=== PATIENT | female | born 1995 | race Caucasian/White ===

== ENCOUNTER 2017-03-06 19:40 | Emergency (ER) | payer MEDICAID, OTHER ==
[2017-03-06] MEDS ORDERED: MORPHINE SULFATE 4 MG INJ IV ONE (19:57)
[2017-03-06] MEDS ORDERED: Phenergan 25 MG INJ IV ONE (19:57)
[2017-03-06] MEDS ORDERED: CLINDAMYCIN-D5W 900 MG/50 ML*** 50 ML IV ONE ×2 (19:58→20:26)
[2017-03-06] MEDS ORDERED: Sodium Chloride 0.9% 1000 ML 1,000 ML IV SCH (20:00)
--- NOTE | 2017-03-06 20:04 | ERPHSYRPT ---
- History of Present Illness Time Seen by Provider: 03/06/17 19:50 Source: patient Exam Limitations: no limitations Patient Subjective Stated Complaint: Pt sts stepped on a nail left foot yesterday. Last tetanus less than 3 years ago. Triage Nursing Assessment: Pt alert, oriented x 4, skin p/w/d, resps non- labored. Pt ambulatory to tx room, steady gait noted. No active bleeding noted , struck nail with heel. Red streaking noted to lateral side of foot. Physician History: YESTERDAY IN HER YARD PT STEPPED ON A SLIME NAIL WITH HER LEFT FOOT WITH RESULTANT LEFT FOOT/ANKLE PAIN, TODAY WITH SWELLING AND REDNESS OF THE LEFT FOOT. PT ALSO C/O NAUSEA, DIAPHORESIS AND CHILLS TODAY; DENIES CHEST PAIN, SHORTNESS OF AIR, FEVER. LAST TETANUS WAS ABOUT 2.5 YEARS AGO. Allergies/Adverse Reactions: Sulfa (Sulfonamide Antibiotics) Allergy (Verified 03/09/15 16:56) Hx Tetanus, Diphtheria Vaccination/Date Given: Yes (less than 3 years ago) Hx Influenza Vaccination/Date Given: No Hx Pneumococcal Vaccination/Date Given: No - Review of Systems Constitutional: Chills Abdominal/Gastrointestinal: Nausea Musculoskeletal: Other (SWELLING AND REDNESS OF THE LEFT FOOT; LEFT ANKLE PAIN.) Endocrine: Excessive Sweating All Other Systems: Reviewed and Negative - Past Medical History Pertinent Past Medical History: No Neurological History: No Pertinent History ENT History: No Pertinent History Cardiac History: No Pertinent History Respiratory History: No Pertinent History Endocrine Medical History: No Pertinent History Musculoskeletal History: No Pertinent History GI Medical History: Other History: No Pertinent History Psycho-Social History: No Pertinent History Female Reproductive Disorders: No Pertinent History Other Medical History: CO CONSTANT ABD PAIN - Past Surgical History Past Surgical History: Yes Other Surgical History: TONSILECTOMY - Social History Smoking Status: Current every day smoker How long have you smoked: 15 Exposure to second hand smoke: No Drug Use: none Patient Lives Alone: No - Female History Hx Last Menstrual Period: last month Hx Now: (STOPPED BCP IN [facility]) - Nursing Vital Signs Nursing Vital Signs: Initial Vital Signs Temperature 98.3 F Temperature Source Oral Pulse Rate 80 Respiratory Rate 16 Blood Pressure [] 155/100 Pain Intensity 6 - Physical Exam General Appearance: alert, anxiety Eyes, Ears, Nose, Throat Exam: pharynx normal, moist mucous membranes Neck Exam: normal inspection Cardiovascular/Respiratory Exam: normal breath sounds, heart sounds normal Gastrointestinal/Abdominal Exam: soft (B.S. NORMAL) Back Exam: normal range of motion Hips Exam: bilateral: normal range of motion Legs Exam: bilateral leg: normal range of motion Knees Exam: bilateral knee: normal range of motion Ankle Exam: left ankle: soft tissue tenderness (MILD TENDERNESS OF THE LEFT ANKLE WITHOUT EDEMA.), bilateral ankle: normal range of motion Foot Exam: left foot: soft tissue tenderness (MILD TENDERNESS, EDEMA AND ERYTHEMA OF THE POSTERIOR ASPECT OF THE LEFT FOOT LATERALLY WITH RED STREAKING TOWARD THE LEFT ANKLE.), bilateral foot: normal range of motion Neuro/Tendon Exam: normal sensation, normal motor functions Mental Status Exam: alert, cooperative SpO2 Interpretation: normal SpO2: 99 Oxygen Delivery: Room Air - Course Nursing assessment & vital signs reviewed: Yes - Radiology Exams Left Foot X-ray Interpretation: Interpreted by me, No Fracture Left Ankle X-ray Interpretation: Discussed w/ radiologist (NO COMPS: TINY OSTEOCHONDRAL LESION OF THE MEDIAL TALUS. NEGATIVE REDIOPAQUE FB.) Ordered Tests: Active Orders 24 hr Category Date Time Status IV Insertion STAT Care 03/06/17 19:57 Active ANKLE (3 VIEWS) Stat Exams 03/06/17 19:58 Taken FOOT (MINIMUM 3 VIEWS) Stat Exams 03/06/17 19:58 Taken BLOOD CULTURE Stat Lab 03/06/17 20:35 Received CBC W DIFF Stat Lab 03/06/17 20:17 Completed CMP Stat Lab 03/06/17 20:15 Completed HCG QUALITATIVE,SERUM Stat Lab 03/06/17 20:15 Completed Medication Summary Generic Name Dose Route Start Last Admin Trade Name Freq PRN Reason Stop Dose Admin Sodium Chloride 1,000 mls @ 100 mls/hr 03/06/17 20:00 03/06/17 20:29 Sodium Chloride 0.9% 1000 Ml IV 04/05/17 19:59 100 mls/hr .Q10H JAIDEN Administration Discontinued Medications Generic Name Dose Route Start Last Admin Trade Name Freq PRN Reason Stop Dose Admin Clindamycin HCl/Dextrose 50 mls @ 100 mls/hr 03/06/17 19:58 03/06/17 20:29 Clindamycin-D5w 900 Mg/50 Ml IV 03/06/17 20:27 100 mls/hr STAT ONE Administration Clindamycin HCl/Dextrose Confirm 03/06/17 20:26 Clindamycin-D5w 900 Mg/50 Ml Administered 03/06/17 20:27 Dose 50 mls @ ud IV .STK-MED ONE Morphine Sulfate 4 mg 03/06/17 19:57 03/06/17 20:30 Morphine Sulfate 4 Mg Inj IV 03/06/17 19:58 4 mg STAT ONE Administration Morphine Sulfate Confirm 03/06/17 20:25 Morphine Sulfate 4 Mg Inj Administered 03/06/17 20:26 Dose 4 mg .ROUTE .STK-MED ONE Promethazine HCl 12.5 mg 03/06/17 19:57 03/06/17 20:29 Phenergan 25 Mg Inj IV 03/06/17 19:58 12.5 mg STAT ONE Administration Promethazine HCl Confirm 03/06/17 20:25 Phenergan 25 Mg Inj Administered 03/06/17 20:26 Dose 25 mg .ROUTE .STK-MED ONE Lab/Rad Data: Laboratory Result Diagrams 03/06/17 20:17 03/06/17 20:15 Laboratory Results 03/06/17 03/06/17 03/06/17 Range/Units 20:17 20:15 20:15 WBC 9.2 (4.0-10.5) K/mm3 RBC 4.76 (4.1-5.4) M/mm3 Hgb 14.0 (12.0-16.0) gm/dl Hct 41.6 (35-47) % MCV 87.4 (78-100) fl MCH 29.4 (26-32) pg MCHC 33.7 (32-36) g/dl RDW 13.5 (11.5-14.0) % Plt Count 193 (150-450) K/mm3 MPV 12.0 H (6-9.5) fl Gran % 62.8 (36.0-66.0) % Lymphocytes % 28.2 (24.0-44.0) % Monocytes % 7.6 (0.0-12.0) % Eosinophils % 1.2 (0.00-5.0) % Basophils % 0.2 (0.0-0.4) % Basophils # 0.02 (0-0.4) Sodium 141 (136-145) mEq/L Potassium 3.4 L (3.5-5.1) mEq/L Chloride 104 (98-107) mEq/L Carbon Dioxide 24.1 (21-32) mEq/L Anion Gap 16.2 H (5-15) MEQ/L BUN 8 L (9-20) mg/dL Creatinine 0.78 (0.55-1.30) mg/dl Estimated GFR > 60 ML/MIN Glucose 90 (70-110) MG/DL Calcium 9.2 (8.5-10.1) mg/dL Total Bilirubin 0.7 (0.2-1.0) mg/dL AST 25 (15-37) U/L ALT 49 (12-78) U/L Alkaline Phosphatase 90 (46-116) U/L Serum Total Protein 7.7 (6.4-8.2) gm/dL Albumin 4.2 (3.4-5.0) g/dL Serum , Qual NEGATIVE (Negative) - Departure Time of Disposition: 21:51 Departure Disposition: Home Clinical Impression: CELLULITIS OF LEFT FOOT, LEFT ANKLE SPRAIN Condition: Fair Critical Care Time: No Instructions: Cellulitis -- Adult, Ankle Sprain Additional Instructions: FOLLOW UP WITH PRIVATE DOCTOR TOMORROW. ELEVATE LEFT FOOT ABOVE HEART LEVEL FOR 24 HOURS. DANIELLE WRAP TO LEFT ANKLE FOR 4 DAYS. USE CRUTCHES FOR 2 WEEKS. NO WEIGHT BEARING ON LEFT FOOT FOR 4 DAYS. Prescriptions: Naproxen [Naprosyn] 500 mg PO Q12H PRN PRN #20 tablet PRN Reason: Pain Clindamycin HCl 300 mg PO Q6H #40 capsule
[2017-03-06] MEDS ORDERED: MORPHINE SULFATE 4 MG INJ ONE (20:25)
[2017-03-06] MEDS ORDERED: Phenergan 25 MG INJ ONE (20:25)
[2017-03-06] MEDS ORDERED: Sodium Chloride 0.9% 1000 ML 1,000 ML ONE (20:26)
[2017-03-06 20:29] LABS: BASOPHIL % 0.2 % (0.0-0.4); Eosinophil % 1.2 % (0.00-5.0); Granulocytes % 62.8 % (36.0-66.0); Lymphocytes % 28.2 % (24.0-44.0); Mean Cell Volume 87.4 fl (78-100); Mean Corpuscular Hemoglobin 29.4 pg (26-32); Monocytes % 7.6 % (0.0-12.0); Platelet Count 193 K/mm3 (150-450); Red Blood Count 4.76 M/mm3 (4.1-5.4); Red Cell Distribution Width 13.5 % (11.5-14.0); White Blood Count 9.2 K/mm3 (4.0-10.5)
[2017-03-06 20:43] LABS: ALBUMIN 4.2 g/dL (3.4-5.0); ALKALINE PHOSPHATASE 90 U/L (46-116); ANION GAP 16.2 MEQ/L (5-15); BILIRUBIN,TOTAL 0.7 mg/dL (0.2-1.0); BLOOD UREA NITROGEN 8 mg/dL (9-20); CHLORIDE 104 mEq/L (98-107); Carbon Dioxide 24.1 mEq/L (21-32); Glucose 90 MG/DL (70-110); Potassium 3.4 mEq/L (3.5-5.1); SGOT/AST 25 U/L (15-37); SGPT/ALT 49 U/L (12-78); SODIUM 141 mEq/L (136-145); Total Protein 7.7 gm/dL (6.4-8.2)
[2017-03-06] MEDS ORDERED: Klor Con 10 MEQ PO ONE ×2 (21:53→22:05)
[2017-03-06 22:04] VITALS: BP 120/70; PULSE 70; O2SAT 100
--- NOTE | 2017-03-07 08:41 | XRAY ---
Indication: Stepped on nail. Comparison: None 3 nonweightbearing views of the left foot obtained. No bony, articular, or soft tissue abnormalities.
--- NOTE | 2017-03-07 08:43 | XRAY ---
Indication: Stepped on nail. Comparison: None 3 views of the left ankle demonstrates tiny osteochondral lesion involving the medial corner of the talus better evaluated with MRI. No other bony, articular, or soft tissue abnormalities.
== END 2017-03-06 22:16 | disposition home or self-care (01) ==
LOC: ED 19:40
DX: L03.116 Cellulitis of left lower limb (principal); S93.402A Sprain of unspecified ligament of left ankle, initial encounter; S91.332A Puncture wound without foreign body, left foot, initial encounter; W45.0XXA Nail entering through skin, initial encounter
CPT/HCPCS: 36000; 36415; 73610; 73630; 80053; 84703; 85025; 87040; 96360; 96361; 96365; 96374; 96375; 99284; J2270; J2550; A9270-GY